=== PATIENT | male | born 1950 | race Caucasian/White ===

== ENCOUNTER → 2018-04-26 | Outpatient (CLI) | payer MEDICARE ==
[~2018-04-26] MED LIST: CRUTCH4 XX; DOCU100 PO; METO25; OXYACE5T PO; Percocet 5-3251 EACH PO; Silver Sulfadi400 GM TP; WATER PILL
== END | disposition home or self-care (01) ==
LOC: LAB SHORT 11:33 → PLD 11:33
DX: D29.0 Benign neoplasm of penis (principal)
CPT/HCPCS: 88305

== ENCOUNTER 2018-09-28 07:10 | Day surgery (SDC) | payer MEDICARE ==
[~2018-09-28] VITALS: Ht 185.4 cm; Wt 91.2 kg
[~2018-09-28 07:10] MED LIST changes: +Dyazide 37.5-21 EACH PO; +ERGO400 PO; +FISH OIL 1,0001 EAC1 PO; -METO25; +METO25 PO; +SILD25T PO; +Synthroid/Lev0.05 MG PO
--- NOTE | 2018-09-28 07:59 | NUR ---
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 Ambulatory in Day Surgery History, Chart, Medications and Allergies reviewed before start of procedure.Lungs clear T/O to Auscultation. Patient confirms NPO status and agrees with scheduled surgery. Patient States Post-Procedure ride home has been arranged.
--- NOTE | 2018-09-28 12:04 | NUR ---
DRESSING TO R INGUINAL AREA D/I. PT HAD EAT AND DRANK FLUIDS VERNA WELL. PO PAIN MEDICATIONS PROVIDED.
--- NOTE | 2018-09-28 12:17 | NUR ---
PT UP AND AMB TO BATHROOM. NO ACUTE DISTRESS. Discharge instructions reviewed with patient. Patient verbalizes understanding. Copy given to patient to take home. Patient States Post-Procedure ride home has been arranged.
--- NOTE | 2018-09-28 12:27 | NUR ---
Ambulatory in Day Surgery. Discharged via wheelchair to private car for ride home.
== END 2018-09-28 12:28 | disposition home or self-care (01) ==
LOC: ORSCMMR 07:10 → ORD 08:45 → ORSCMMR 08:45
PROVIDERS: Surgery
PROC: 0YU50JZ Supplement Right Inguinal Region with Synthetic Substitute, Open Approach (ICD-10-PCS; principal; 2018-09-28 08:45)
DX: K40.90 Unilateral inguinal hernia, without obstruction or gangrene, not specified as recurrent (principal); I10 Essential (primary) hypertension; E03.9 Hypothyroidism, unspecified; Z79.899 Other long term (current) drug therapy
CPT/HCPCS: C1781; J0690; J1100; J1885; J2405; J3010; J7120

== ENCOUNTER 2019-08-13 12:17 | Day surgery (SDC) | payer MEDICARE ==
[~2019-08-13] VITALS: Ht 188 cm; Wt 89.0 kg
== END 2019-08-13 14:47 | disposition home or self-care (01) ==
LOC: ORSCSDS 12:17
PROVIDERS: Internal Medicine Gastroenterology
PROC: 0DBN8ZX Excision of Sigmoid Colon, Via Natural or Artificial Opening Endoscopic, Diagnostic (ICD-10-PCS; principal; 2019-08-13 13:45)
PROC: 0DBM8ZX Excision of Descending Colon, Via Natural or Artificial Opening Endoscopic, Diagnostic (ICD-10-PCS; principal; 2019-08-13 13:45)
DX: Z12.11 Encounter for screening for malignant neoplasm of colon (principal); D12.4 Benign neoplasm of descending colon; K63.5 Polyp of colon; K57.30 Diverticulosis of large intestine without perforation or abscess without bleeding; Z86.010 Personal history of colon polyps; I10 Essential (primary) hypertension; E03.9 Hypothyroidism, unspecified; Z87.891 Personal history of nicotine dependence; Z79.899 Other long term (current) drug therapy
CPT/HCPCS: 88305; J2704; J7120

== ENCOUNTER 2024-11-02 08:03 | Day surgery (SDC) | payer OTHER ==
[~2024-11-02] VITALS: Ht 188 cm; Wt 88.6 kg
[~2024-11-02 08:03] MED LIST changes: +Lactated Ringer's 1,000 ML IV ONE; +propofoL 40 ML IV ONE
[2024-11-02] MEDS ORDERED: Amlodipine Bes2.5 MG PO (09:23)
[2024-11-02] MEDS ORDERED: TAMS.4ER PO (09:23)
[2024-11-02] MEDS ORDERED: Lactated Ringer's 1,000 ML IV ONE (09:29)
--- NOTE | 2024-11-02 10:23 | NUR ---
11/02/24 1023 YENIFER VALLEJO THROUGHOUT CASE IT WAS NOTED THAT PATIENT'S THREE LEAD SHOWED A SINUS ARRYTHMIA. DR. EASLEY WAS NOTIFIED DURING THE CASE. BEATS CAPTURED. NO FURTHER FOLLOWUP NECESSARY PER DR. EASLEY. IRREGULAR SVPB.
[2024-11-02 10:52] VITALS: BP 94/68
== END 2024-11-02 10:59 | disposition home or self-care (01) ==
LOC: ORSCSDS 08:03
DX: Z12.11 Encounter for screening for malignant neoplasm of colon (principal); D12.2 Benign neoplasm of ascending colon; D12.5 Benign neoplasm of sigmoid colon; K57.30 Diverticulosis of large intestine without perforation or abscess without bleeding; Z86.0101 Personal history of adenomatous and serrated colon polyps; Z86.0102 Personal history of hyperplastic colon polyps; I10 Essential (primary) hypertension; E78.5 Hyperlipidemia, unspecified; Z79.899 Other long term (current) drug therapy; F17.210 Nicotine dependence, cigarettes, uncomplicated
CPT/HCPCS: 88305; J2704; J7120